=== PATIENT | female | born 1965 | race Caucasian/White ===

== ENCOUNTER → 2021-06-16 10:30 | Outpatient (BNVA) | payer OTHER, SELFPAY | PROVIDERS: Visit Provider Physician Assistant | DX: M79.641 Pain in right hand (principal); M79.642 Pain in left hand; M65.9 Synovitis and tenosynovitis, unspecified | CPT/HCPCS: 73110; 73130; 99204 ==

== ENCOUNTER → 2021-07-05 15:19 | Outpatient (BNVA) | payer OTHER, SELFPAY | PROVIDERS: Visit Provider Physician Assistant | DX: M79.642 Pain in left hand (principal); M79.641 Pain in right hand; M65.842 Other synovitis and tenosynovitis, left hand; M65.841 Other synovitis and tenosynovitis, right hand | CPT/HCPCS: 99213 ==